=== PATIENT | female | born 1945 | race Caucasian/White ===

== ENCOUNTER → 2016-08-16 | Outpatient (CLI) | payer MEDICARE, OTHER ==
[~2016-08-16] MED LIST: LATA2.5D7 LEFT EYE; LEVO125T48 PO; MULT-934 PO
== END ==
LOC: WC.BC 09:11
DX: Z12.31 Encounter for screening mammogram for malignant neoplasm of breast (principal); Z80.3 Family history of malignant neoplasm of breast
CPT/HCPCS: 77063; G0202

== ENCOUNTER 2016-09-10 09:58 | Day surgery (SDC) | payer MEDICARE, OTHER ==
[~2016-09-10] VITALS: Ht 152.4 cm; Wt 73.4 kg
[~2016-09-10 09:58] MED LIST changes: +LATA2.5D7 BOTH EYES; -LATA2.5D7 LEFT EYE; +LIDOCAINE 1% (10mg/ml) 2ml SDV INJ ONE; +LR 1,000 ML IV SCH; +OMEG300C PO
--- OUTSIDE RECORDS SUMMARY | 2016-09-10 10:01 | XMS REPORT | Referral Summary ---
Author Author [facility], Family Medicine Organization [facility] Address Unknown Phone Unavailable Care Team Providers Care Computer Engineering Technologist Name Role Phone JorgeMaritza Primary Care Physician [phone] Encounter [facility] [id number] Date(s): 09/25/15 - 09/25/15 [facility], [address] [place] [id number] Discharge Diagnosis: Low back pain Discharge Disposition: 01-Home or Self Care Attending Physician: Romulo Ceja DO Admitting Physician: Romulo Ceja DO Vital Signs Most recent to 1 oldest [Reference Range]: Temperature Tympanic 36.2 degC [36.6-38.1 degC] *LOW* (09/25/15 9:08 AM) Peripheral Pulse 80 bpm Rate [60-100 bpm] (09/25/15 9:08 AM) Blood Pressure 150/82 mmHg [90-140/60-90 mmHg] *HI* (09/25/15 9:08 AM) Problem List Condition Effective Dates Status Health Status Informant Adult Active hypothyroidism(Confi rmed) Allergies, Adverse Reactions, Alerts Substance Reaction Severity Status penicillin Active Medications meloxicam 7.5 mg oral tablet 7.5 mg 1 tabs, Oral, Daily, # 30 tabs, 0 Refill(s), Pharmacy: [facility] # [id number], 1 tabs Oral Daily,x30 days Start Date: 09/01/15 Stop Date: 10/01/15 Status: Ordered Synthroid 150 mcg (0.15 mg) oral tablet tabs, Oral, Daily, 0 Refill(s) Start Date: 11/24/13 Status: Ordered Results No data available for this section Immunizations No data available for this section Procedures No data available for this section Social History Social History Type Response Smoking Status Never smoker Assessment and Plan Extracted from: Title: Office Visit Note Author: Romulo Ceja DO Date: 09/25/15 Assessment/Plan 1.Low back pain, Low back pain 1. Continue with Tylenol as previous. 2. Referral to physical therapy for farther evaluation and management. 3. Follow-up in a month for reevaluation. Continue with same work restrictions as previous. Ordered: Office Visit Level 3 Est 92673
--- OUTSIDE RECORDS SUMMARY | 2016-09-10 10:01 | XMS REPORT | Referral Summary ---
Author Author [facility], Family Medicine Organization [facility] Address Unknown Phone Unavailable Care Team Providers Care Aerologist Name Role Phone JorgeMaritza Primary Care Physician [phone] Encounter [facility] [id number] Date(s): 10/25/15 - 10/25/15 [facility], Family [address] [place] [address] Discharge Diagnosis: Low back strain Discharge Disposition: 01-Home or Self Care Attending Physician: Romulo Ceja DO Admitting Physician: Romulo Ceja DO Vital Signs Most recent to 1 oldest [Reference Range]: Temperature Tympanic 36.7 degC [36.6-38.1 degC] (10/25/15 8:28 AM) Peripheral Pulse 76 bpm Rate [60-100 bpm] (10/25/15 8:28 AM) Blood Pressure 130/78 mmHg [90-140/60-90 mmHg] (10/25/15 8:28 AM) Problem List Condition Effective Dates Status Health Status Informant Adult Active hypothyroidism(Confi rmed) Allergies, Adverse Reactions, Alerts Substance Reaction Severity Status penicillin Active Medications meloxicam 7.5 mg oral tablet 7.5 mg 1 tabs, Oral, Daily, # 30 tabs, 0 Refill(s), Pharmacy: [facility] # [id number], 1 tabs Oral Daily,x30 days Start Date: [...] Visit Note Author: Romulo Ceja DO Date: 10/25/15 Assessment/Plan 1.Low back strain 1. Patient was cleared to return to work without restrictions and activity as tolerated. 2. Follow-up with her primary care provider for any new concerns. Ordered: Office Visit Level 3 Est 97814
--- OUTSIDE RECORDS SUMMARY | 2016-09-10 10:01 | XMS REPORT | Referral Summary ---
Author Author [facility], Family Medicine Organization [facility] Address Unknown Phone Unavailable Care Team Providers Care Heel Sewer Name Role Phone JorgeMaritza Primary Care Physician [phone] Encounter [facility] [id number] Date(s): 09/08/15 - 09/08/15 [facility], [address] [place] [id number] Discharge Diagnosis: Lumbar spine strain Discharge Disposition: 01-Home or Self Care Attending Physician: Romulo Ceja DO Admitting Physician: Romulo Ceja DO Vital Signs Most recent to 1 oldest [Reference Range]: Temperature Tympanic 36.1 degC [36.6-38.1 degC] *LOW* (09/08/15 7:56 AM) Peripheral Pulse 76 bpm Rate [60-100 bpm] (09/08/15 7:56 AM) Blood Pressure 147/82 mmHg [90-140/60-90 mmHg] *HI* (09/08/15 7:56 AM) Problem List Condition Effective Dates Status Health Status Informant Adult Active hypothyroidism(Confi rmed) Allergies, Adverse Reactions, Alerts Substance Reaction Severity Status penicillin Active Medications cyclobenzaprine 5 mg oral tablet 5 mg 1 tabs, Oral, Daily, X 10 days, # 10 tabs, 0 Refill(s), Pharmacy: [facility] #[id number], 1 tabs Oral Daily,x10 days Start Date: 09/01/15 Stop Date: 09/11/15 Status: Ordered meloxicam 7.5 mg oral tablet 7.5 mg 1 tabs, Oral, Daily, # 30 tabs, 0 Refill(s), Pharmacy: [facility] # [id number], 1 tabs Oral Daily,x30 days Start Date: [...] Extracted from: Title: Office Visit Note Author: MarcialRomulo Date: 09/08/15 Assessment/Plan 1.Lumbar spine strain, Strain of muscle, fascia and tendon of lower back, initial encounter 1. Clinical finding consistent with lumbar strain. 2. Continue with cyclobenzaprine and meloxicam as needed. 3. She may return to work with restrictions of lifting no more than 10 pounds, no twisting, stooping and no bending at the hip. 4. Follow-up in 2 weeks for reevaluation. If her symptoms do not completely resolve then we may consider sending her to physical therapy. Ordered: Office Visit Level 3 Est [id number]
[2016-09-10 10:17] VITALS: Ht 152.4 cm; Wt 73.4 kg
[2016-09-10 10:18] VITALS: BP 144/73; PULSE 62; RESP 15; TEMP 98.2; O2SAT 97
--- NOTE | 2016-09-10 11:22 | ANESPREOP ---
Anesthesia Record Date and Time DATE: 09/10/16 TIME: 11:20 Pre-Op Diagnosis CRCS Proposed Surgical Procedure COLONOSCOPY NPO since: MN Allergies: Coded Allergies: Iodinated Contrast Media - Oral and (Verified Allergy, Unknown, TONGUE SWELLING, 09/10/16) Penicillins (Verified Allergy, Unknown, 09/10/16) latex (Verified Allergy, Unknown, ITCHING, RED HANDS W BLISTERS FROM GLOVES, 09/10/16) Ht/Wt/BMI Height: 5 ' 0.00 " Weight: 73.400 kg BMI: 31.6 kg/m2 Vital Signs Date Time Temp Pulse Resp B/P Pulse Ox O2 Delivery O2 Flow Rate FiO2 09/10/16 10:18 98.2 62 15 144/73 97 Room Air Medications Inpatient Medications Current Medications Medications (Trade) Dose Ordered Sig/Keke Start Time Stop Time Status Last Admin Dose Admin Lactated Ringer's (Lactated Ringers) 1,000 ml @ 50 mls/hr Q20H 09/10/16 07:00 09/10/16 10:43 50 MLS/HR Latanoprost (Xalatan) 2.5 Ml Drops, 1 DROP BOTH EYES HS, (Reported) Last Taken: on 09/09/16 2200 Levothyroxine Sodium (Levothroid) 125 Mcg Tablet, 125 MCG PO DAILY, (Reported) Last Taken: on 09/10/16 0000 Multivitamins (Multi-Day Vitamin) 1 Tab Tablet , 1 TAB PO DAILY, (Reported) Last Taken: on 09/07/16 0800 Kaleva-3 Fatty Acids (Fish Oil) 300 Mg Capsule, 1 CAP PO DAILY, (Reported) Last Taken: on Unknown Date & Time Currently on Beta Justine: No Medical/Surgical History Anesthesia PMH: Reports: Arthritis (BACK/HIPS), Glaucoma (LEFT EYE), Thyroid Disease (HYPO), Denies: *Angina, *Diabetes, *Dyspnea, *Hypertension, *LA, Anesthesia Reactions (NO AIRWAY ISSUES), Asthma, Blood Transfusion Reac, CHF, COPD, CVA/Stroke/TIA, Cancer, Clotting Problems, Deep Vein Thrombosis, Hepatitis , Hiatal Hernia, Malignant Hyperthermia, Pneumonia (HX OF ABOUT 10YRS AGO), Reflux (HEARTBURN WITH CERTAIN FOODS), Renal Disease, Seizures, Sleep Apnea, Tuberculosis Smoking Status: Never smoker Use Chewing Tobacco?: No Second Hand Exposure: No Substance Use Type: does not use Alcohol Intake: none HX of Last Menstrual Period: BEFORE AGE 50 Past Surgical History Orthopedic Surgeries: No Abdominal Surgeries: Yes - APPY Genitourinary Surgeries: No Cardiac Surgeries: No Endocrine Surgeries: No Reproductive Surgeries: Yes - TUBAL LIGATION; RIGHT SALPINGECTOMY,LUMPECTOMY-R. Neurological Surgeries: No Ear Surgeries: No Nose Surgeries: No Throat Surgeries: No Other Surgeries: Yes - COLONOSCOPY Anesthesia Adverse Reactions: FOUND none Family Hx of Anesthesia Advers: none Hx of Motion Sickness: No Pertinent Findings EKG Rhythm: Sinus Rhythm Physical Exam Respiratory: Lungs clear Cardiovascular: FOUND Regular rate, rhythm, FOUND No murmur Airway Assessment Mallampati Score: I TMD: 3 Fingerbreadths Neck Extension: Good ASA: 2 Plan Anesthesia Plan: TIVA Discussion Discussed risks/options/alternatives of anesthesia and questions answered. Patient consents. Nursing pain assessment noted. Present: Spouse Attestation Statement Prior to the delivery of any anesthetic medication, I examined the patient, developed the plan, obtained the patient's consent and discussed the risk and benefits of the procedure with the patient/guardian. DARIN JOHNSON CRNA September 10, 2016 11:22
[2016-09-10] MEDS ORDERED: GLYCOPYRROLATE 0.4mg/2ml INJECTION ONE (11:53)
[2016-09-10 12:19] VITALS: BP 125/58; PULSE 69; RESP 16; TEMP 97.6; O2SAT 99
--- NOTE | 2016-09-10 12:25 | ANESPO ---
Post-Op Note Date 09/10/16 Time: 12:25 Status Pt Participated in Evaluation: Pt participated in person Vital Signs Date Time Temp Pulse Resp B/P Pulse Ox O2 Delivery O2 Flow Rate FiO2 09/10/16 10:18 98.2 62 15 144/73 97 Room Air Respiratory Function: Airway patent, Regular respirations Cardiovascular Function: Regular pulse Telemetry Pattern: SR Mental Status: Alert/oriented Pain Level Intensity: 0 Hydration: Taking po fluids Complications during Recovery None apparent Follow-Up Instructions Instructions Per Surgeon DARIN JOHNSON CRNA September 10, 2016 12:25
[2016-09-10 12:34] VITALS: BP 105/65; PULSE 74; RESP 18; O2SAT 97
[2016-09-10 12:49] VITALS: BP 148/72; PULSE 70; RESP 16; TEMP 96.8; O2SAT 96
--- NOTE | 2016-09-11 09:24 | OPNOTEF ---
DATE OF PROCEDURE 09/10/2016 SURGEON Gary Patel MD PREOPERATIVE DIAGNOSIS Colon cancer screening/personal history of polyps. POSTOPERATIVE DIAGNOSIS Colon cancer screening/personal history of polyps, mild diverticulosis, melanosis coli, polyps at the ascending colon, 40 cm and 15 cm . PROCEDURE Colonoscopy with polypectomies via snare polypectomy technique. ANESTHESIA TIVA. BRIEF HISTORY/INDICATIONS Skylar is a 71-year-old female patient of mine who unfortunately has had polyps in the past. She is here for colorectal cancer surveillance due to personal history of polyps. FINDINGS On colonoscopy, Skylar was found to have three small colonic polyps. These were 3-5 mm in diameter and located in the ascending colon x1, 40 cm x1, and 15 cm x1. She was also found to have mild diverticulosis and melanosis coli. There were no other significant findings. DESCRIPTION OF PROCEDURE After informed consent was obtained, the patient was brought to the endoscopy suite and placed on the table in the left lateral decubitus position. The patient subsequently underwent total intravenous anesthesia by the nurse recovery unit operator per my request. Next, a digital rectal examination was performed; normal sphincter tone. No rectal masses were appreciated. An Olympus colonoscope was inserted in the anus and advanced with the lumen of the colon under direct visualization at all times until the cecum was ascertained. Triangulation of the tenia coli, ileocecal valve and appendiceal lumen were all visualized. The scope was then slowly withdrawn, again while maintaining visualization of the lumen at all times. As stated above, the entire colon was without evidence for angiodysplastic lesions or malignancies. The patient was found have mild diverticulosis. The patient was also found to have three small colonic polyps as described above. These polyps were located at 15 cm, 40 cm and in the ascending colon and removed in their entirety and submitted for pathologic evaluation. Photographs were obtained for documentation. The scope continued to be withdrawn until it was removed from the patient's anal verge. The patient tolerated the procedure without difficulty and was sent back to the preoperative area in stable condition. We will call Skylar with the results of her pathology. She will likely need a repeat colonoscopy in 3-5 years depending on the pathology. J CARLOS
== END 2016-09-10 12:55 | disposition home or self-care (01) ==
LOC: SCU 09:58
PROVIDERS: ATTEND Family Medicine
DX: Z12.11 Encounter for screening for malignant neoplasm of colon (principal); D12.2 Benign neoplasm of ascending colon; D12.6 Benign neoplasm of colon, unspecified; Z86.010 Personal history of colon polyps; K57.30 Diverticulosis of large intestine without perforation or abscess without bleeding; K63.89 Other specified diseases of intestine; E03.9 Hypothyroidism, unspecified; Z79.899 Other long term (current) drug therapy
CPT/HCPCS: 45385; J7120; 88305